=== PATIENT | male | born 1995 | race Caucasian/White ===

== ENCOUNTER 2017-07-20 11:11 | Emergency (ER) | payer SELFPAY ==
[2017-07-20] MEDS ORDERED: Albuterol/Ipratropium NEB.SOL* Albuterol 2.5 MG/Ipratropium 0.5 MG 3 ML INH ONE (11:31)
--- NOTE | 2017-07-20 12:29 | ED ---
HPI Cardiac - HPI Summary HPI Summary: Pt here w/ chest tightness, cough and URI sx x 2 days. Nasal congestion, rhinorrhea, ST, PND, dry cough w/ mucous production at night w/ sleeping. Denies fever, chills, N/V/D, ab pain, rash. He has h/o asthma but does not use albuterol inhaler as "this never helps". He smokes 1PPD and no desire to quit. Has not tried anything yet for his URI and cough. No known sick contacts. No PCP. - History of Current Complaint Chief Complaint: EDAsthma Stated Complaint: SOB Time Seen by Provider: 07/20/17 11:22 Hx Obtained From: Patient Pain Intensity: 0 - Allergy/Home Medications Allergies/Adverse Reactions: Allergies Allergy/AdvReac Type Severity Reaction Status Date / Time No Known Allergies Allergy Verified 07/20/17 11:16 PMH/Surg Hx/FS Hx/Imm Hx Previously Healthy: Yes Respiratory History: Reports: Hx Asthma Infectious Disease History: No Infectious Disease History: Denies: Traveled Outside the [place] in Last 30 Days - Social History Occupation: Unemployed Lives: With Family Alcohol Use: None Hx Substance Use: No Substance Use Type: Reports: None Hx Tobacco Use: Yes Smoking Status (MU): Current Every Day Smoker Amount Used/How Often: 1PPD - no desire to quit Review of Systems Constitutional: Negative Negative: Fever, Chills Eyes: Negative Negative: Drainage, Erythema Positive: Sore Throat, Nasal Discharge Cardiovascular: Negative Negative: Chest Pain Positive: Shortness Of Breath, Cough Gastrointestinal: Negative Positive: no symptoms reported Musculoskeletal: Negative Skin: Negative Neurological: Negative Psychological: Normal All Other Systems Reviewed And Are Negative: Yes Physical Exam Triage Information Reviewed: Yes Vital Signs On Initial Exam: Initial Vitals Temp Pulse Resp BP Pulse Ox 98.3 F 98 20 158/88 98 07/20/17 11:12 07/20/17 11:12 07/20/17 11:12 07/20/17 11:12 07/20/17 11:12 Vital Signs Reviewed: Yes Appearance: Positive: Well-Appearing, No Pain Distress, Obese Skin: Positive: Warm, Dry - no rash observed Head/Face: Positive: Normal Head/Face Inspection - Sinuses NTTP Eyes: Positive: Normal, EOMI, Conjunctiva Clear ENT: Positive: Hearing grossly normal, Pharyngeal erythema - cobblestoning, Nasal congestion, TMs normal. Negative: Nasal drainage, Trismus, Muffled voice Neck: Positive: Supple, Nontender, No Lymphadenopathy Respiratory/Lung Sounds: Positive: Clear to Auscultation, Breath Sounds Present , Rhonchi - clears w/ cough. Negative: Rales, Stridor, Wheezes Cardiovascular: Positive: Normal, RRR, S1, S2. Negative: Murmur, Rub Abdomen Description: Positive: Nontender, Soft Bowel Sounds: Positive: Present Musculoskeletal: Positive: Normal, Strength/ROM Intact Neurological: Positive: Normal, Sensory/Motor Intact, Alert, Oriented to Person Place, Time, CN Intact II-III Psychiatric: Positive: Normal Diagnostics - Vital Signs Vital Signs Temp Pulse Resp BP Pulse Ox 07/20/17 11:12 98.3 F 98 20 158/88 98 - Laboratory Diagnostic Studies Comment: CXR report reveals no acute findings. Lab Statement: Any lab studies that have been ordered have been reviewed, and results considered in the medical decision making process. Re-Evaluation - Re-Evaluation First Eval Change: Improved - chest tightness is somewhat imrpoved s/p duoneb - pulse ox > 95% and chest clear on auscultation; breathing easily at rest Disposition - Course Course Of Treatment: Pt appears to have bronchitis. Discussion about smoking effecting his pulm health along with other inhaled chemicals (ie. perfumes, candles, etc). Encouraged pulmonary toileting at home and avoiding irritants but especially f/u w/ PCP. He will return to ED if danger s/sx present. He was d /c'd w/ anbx and neb machine and he reports HFA is not typically helpful however neb was today and has been in the past. He also admits no desire to quit smoking - again, education provided. - Diagnoses Provider Diagnoses: Bronchitis, Smokes Discharge - Discharge Plan Condition: Stable Disposition: HOME Prescriptions: Albuterol/Ipratropium NEB.MINERVA* [Duoneb (Albuterol 2.5 MG/Ipratropium 0.5 MG)] 1 neb INH Q6H PRN #20 neb.minerva PRN Reason: Cough Azithromycin TAB* [Zithromax TAB (Z-THIAGO) 250 mg #6 tabs] 2 tab PO .TODAY, THEN 1 DAILY #1 thiago Respiratory Therapy Supplies [Nebulizer Kit/Tubing/Mout] 1 kit .SEE ORDER . DIRECTED #1 kit Patient Education Materials: Upper Respiratory Infection (ED), Acute Bronchitis (ED) Referrals: [facility] [place] [facility] [Outside] No Primary Care Phys,NOPCP [Primary Care Provider] - Additional Instructions: Rest, stay hydrated and avoid scents/chemicals/smoke/etc - these will trigger your asthma to be worse. You may also implement the following for relief of symptoms: Saline nasal wash (netti pot) & throat gargle 2 x day with 8 ounces of warm water + 1/4 teaspoon of salt Drink 60+ ounces of water daily Sleep 8+ hours per night Avoid Dairy and sugar Hot herbal/decaf tea with lemon & honey Chicken broth (preferably organic, free range chicken) Humidifier in house, but especially near bed at night Try a facial steam with or without eucalyptus essential oil or Vicks Vapor rub Cough drops Mucinex with plenty of water to loosen secretions Consider taking Vitamin D3 5,000iu and Vitamin C 1,000mg every day during illness Start probiotics in between and after completion of antibiotics (ie. Yogurt and/ or capsules of L. acidophilus, L. bifidus, L. casei, etc - make sure to get these from the refrigerated food section as they are live and active cultures) Complete antibiotics and use nebulizer breathing treatments as directed. If you breathing worsens, return to ED. Otherwise, follow-up with your PCP. If you do not have one, call the referral line to get established.
--- NOTE | 2017-07-20 12:49 | RAD ---
HISTORY: Cough, chest tightness COMPARISONS: None VIEWS: 4: Frontal dual-energy and lateral views of the chest. FINDINGS: CARDIOMEDIASTINAL SILHOUETTE: The cardiomediastinal silhouette is normal. CARMEN: The carmen are normal. PLEURA: The costophrenic angles are sharp. No pleural abnormalities are noted. LUNG PARENCHYMA: The lungs are clear. ABDOMEN: The upper abdomen is clear. There is no subphrenic gas. BONES AND SOFT TISSUES: No bone or soft tissue abnormalities are noted. OTHER: None. IMPRESSION: NO ACTIVE CARDIOPULMONARY DISEASE.
[2017-07-20 13:07] VITALS: BP 126/66
== END 2017-07-20 13:20 | disposition home or self-care (01) ==
LOC: ED 11:11
DX: J40 Bronchitis, not specified as acute or chronic (principal); R06.02 Shortness of breath; F17.210 Nicotine dependence, cigarettes, uncomplicated; R05 Cough; J06.9 Acute upper respiratory infection, unspecified; J34.89 Other specified disorders of nose and nasal sinuses; R09.81 Nasal congestion
CPT/HCPCS: 71020; 99282; A9270-GY

== ENCOUNTER 2017-08-07 14:55 | Emergency (ER) | payer SELFPAY ==
[2017-08-07 15:03] VITALS: BP 130/69
--- NOTE | 2017-08-07 15:41 | UC ---
Asthma HPI - HPI Summary HPI Summary: 21 y/o male presents to the urgent care s/o chest tightness and wheezing for the past 3 days. pt reports he doen't have his albuterol inhaler. He has Hx of asthma and it was controlled for the past 10 days until about 3 weeks ago when he had a URI and end up in the ER due to an episode of SOB and wheezing. He was Rx the nebulizer machine, but her insurance doesn't cover for it. Now symptoms have return. Pt denies fever, URI, SOB, chest pain, abdominal pain, N/V /D - History of Current Complaint Chief Complaint: UCRespiratory Stated Complaint: ASTHMA Time Seen by Provider: 08/07/17 15:39 Hx Obtained From: Patient Onset/Duration: Gradual Onset, Lasting Days - 3 days, Still Present Timing: Minutes Initial Severity: Mild Current Severity: Moderate Pain Intensity: 0 Pain Scale Used: 0-10 Numeric Location/Character: Wheezing Aggravating Factor(s): Smoke Alleviating Factor(s): Rest Associated Signs and Symptoms: Positive: Shortness of Breath - Risk Factors Status Asthmaticus Risk Factors: Negative - Allergy/Home Medications Allergies/Adverse Reactions: Allergies Allergy/AdvReac Type Severity Reaction Status Date / Time No Known Allergies Allergy Verified 08/07/17 15:03 PMH/Surg Hx/FS Hx/Imm Hx Previously Healthy: Yes Respiratory History: Asthma - Surgical History Surgical History: None - Family History Known Family History: Positive: None - apt denies FMHX - Social History Occupation: Employed Full-time Lives: With Family Alcohol Use: None Substance Use Type: None Smoking Status (MU): Heavy Every Day Tobacco Smoker Amount Used/How Often: 1PPD - no desire to quit Review of Systems Constitutional: Negative Skin: Negative Eyes: Negative ENT: Negative Respiratory: Shortness Of Breath, Other - wheezing Cardiovascular: Negative Gastrointestinal: Negative Genitourinary: Negative Motor: Negative Musculoskeletal: Negative Neurological: Negative Psychological: Negative Is Patient Immunocompromised?: No All Other Systems Reviewed And Are Negative: Yes Physical Exam Triage Information Reviewed: Yes Vital Signs: Initial Vital Signs Temp 97.8 F 08/07/17 14:59 Pulse 75 08/07/17 14:59 Resp 18 08/07/17 14:59 BP 130/69 08/07/17 14:59 Pulse Ox 100 12/04/17 14:59 - Additional Comments VITAL SIGNS: Reviewed. GENERAL: Patient is a well developed and nourished male with some w/o any apparent distress HEAD AND FACE: Normocephalic and atraumatic. EYES: PERRLA, EOMI x 2, No injected conjunctiva. EARS: Hearing grossly intact. Ear canals and tympanic membranes WNL MOUTH: Dry oral mucosa. NECK: Supple, trachea is midline, no adenopathy, no JVD, no carotid bruit. CHEST: Symmetric, No intercostal or abdominal retraction, LUNGS: Scattered bilateral wheezing in the posterior lungs.No crackles, rales CVS: RRR,, S1 and S2 present, no murmurs or gallops appreciated. ABDOMEN: Soft, non-tender. No signs of distention. Positive BS. No rebound, no guarding, and no masses palpated. EXTREMITIES: FROM in all major joints, no edema, no cyanosis or clubbing. NEURO: Alert and oriented x 3. No acute neurological deficits. Speech is normal and follows commands. SKIN: Dry and warm Asthma Course/Dx - Course Course Of Treatment: 21 y/o male presents to the urgent care s/o chest tightness and wheezing for the past 3 days. pt reports he doen't have his albuterol inhaler. He has Hx of asthma and it was controlled for the past 10 days until about 3 weeks ago when he had a URI and end up in the ER due to an episode of SOB and wheezing. He was Rx the nebulizer machine, but her insurance doesn't cover for it. Now symptoms have return. Pt denies fever, URI, SOB, chest pain, abdominal pain, N/V/D Hx obtained. Pt with astma exacerbation on examination probably due to URI. Pt given prednisone and Albuterol Treatment at the clinic. Patient tolerated well treatment and lungs improved, O2 sat 100% . Pt Rx same medications. The patient was recommended to increase fluid intake. Take medications as recommended. Patient recommended to return to the clinic or go to the nearest ER if symptoms do not improve or worsen. Patient understood and agreed with plan of care - Differential Dx/Diagnosis Differential Diagnosis/HQI/PQRI: Acute Asthma, Bronchitis, COPD Excerbation, Pneumonia, Reactive Airway Disease Provider Diagnoses: 1- Acute asthma exacerbation Discharge - Discharge Plan Condition: Stable Disposition: HOME Prescriptions: Albuterol HFA INHALER* [Ventolin HFA Inhaler*] 2 puff INH Q6H PRN #1 mdi PRN Reason: Wheezing predniSONE TAB* [Deltasone TAB*] 20 mg PO DAILY #8 tab Patient Education Materials: Asthma (ED) Referrals: [facility] [place] [facility] [Outside] - 3 Days Additional Instructions: 1-Please take full course of antibiotic to avoid resistance. 2-Take Prednisone PO as directed continue using the albuterol inhaler 3- If symptoms do not improve or worsen or your develop SOB with fever and severe wheezing please go immediately to the ER further evaluation and treatment. 4- F/u with your PCP in 2-3 days for further management on your Asthma
[2017-08-07] MEDS ORDERED: Albuterol 2.5 MG/3 ML NEB.SOL* (0.083%) INH ONE (15:49)
[2017-08-07] MEDS ORDERED: predniSONE TAB* 20 MG PO ONE (15:49)
== END 2017-08-07 16:28 | disposition home or self-care (01) ==
LOC: UCEAST 14:55
DX: J45.901 Unspecified asthma with (acute) exacerbation (principal); F17.210 Nicotine dependence, cigarettes, uncomplicated
CPT/HCPCS: 99212; G0463; J7512

== ENCOUNTER 2018-02-15 11:10 | Emergency (ER) | payer OTHER ==
[2018-02-15] MEDS ORDERED: Dexamethasone TAB* 4 MG PO ONE (11:34)
--- NOTE | 2018-02-15 11:48 | ED ---
Throat Pain/Nasal Congestion - HPI Summary HPI Summary: Pt. is a 22 y.o male who presents to the ER for a sore throat, cough and nasal congestion x 3 days. No past medical history. Pt. states he feels as though his throat is so swollen that he is having trouble breathing and swallowing. Denies associated fever, abd. pain, N/V/D. Symptoms are mild in severity. Swallowing makes symptoms worse. Nothing makes symptoms better. - History of Current Complaint Chief Complaint: EDThroatPain Time Seen by Provider: 02/15/18 11:23 Hx Obtained From: Patient - Allergies/Home Medications Allergies/Adverse Reactions: Allergies Allergy/AdvReac Type Severity Reaction Status Date / Time Adhesive Tape [Silk Tape] Allergy Unknown Verified 02/15/18 11:18 Reaction Details environmental Allergy Sneezing Uncoded 02/15/18 11:18 Home Medications: Home Medications NK [No Home Medications Reported] 02/15/18 [History Confirmed 02/15/18] PMH/Surg Hx/FS Hx/Imm Hx Previously Healthy: Yes Respiratory History: Reports: Hx Asthma Infectious Disease History: No Infectious Disease History: Denies: Traveled Outside the [place] in Last 30 Days - Family History Known Family History: Positive: None - apt denies FMHX - Social History Occupation: Employed Full-time Lives: With Family Alcohol Use: None Hx Substance Use: No Substance Use Type: Reports: None Hx Tobacco Use: Yes Smoking Status (MU): Heavy Every Day Tobacco Smoker Amount Used/How Often: 1PPD - no desire to quit Review of Systems Constitutional: Negative Negative: Fever, Chills Eyes: Negative Positive: Sore Throat, Nasal Discharge Positive: Shortness Of Breath, Cough Gastrointestinal: Negative Negative: Abdominal Pain, Vomiting, Diarrhea Neurological: Negative All Other Systems Reviewed And Are Negative: Yes Physical Exam Triage Information Reviewed: Yes Vital Signs On Initial Exam: Initial Vitals Temp Pulse Resp BP Pulse Ox 96.8 F 95 18 157/87 98 02/15/18 11:16 02/15/18 11:16 02/15/18 11:16 02/15/18 11:16 02/15/18 11:16 Vital Signs Reviewed: Yes Appearance: Positive: Well-Appearing - Pt. sitting in chair talking on his phone , in NAD. Skin: Positive: Warm, Dry Head/Face: Positive: Normal Head/Face Inspection Eyes: Positive: Normal ENT: Positive: TMs normal, Other - Oral pharynx with moderate bilateral tonsilar edema, small excudates bilaterally. Uvula is midline without edema or deviation. No muffled voice or pooling of secretions. Neck: Positive: Supple, No Lymphadenopathy. Negative: Nuchal Rigidity Respiratory/Lung Sounds: Positive: Clear to Auscultation, Breath Sounds Present Cardiovascular: Positive: Normal, RRR Neurological: Positive: Normal, CN Intact II-III Psychiatric: Positive: Affect/Mood Appropriate Diagnostics - Vital Signs Vital Signs Temp Pulse Resp BP Pulse Ox 02/15/18 11:16 96.8 F 95 18 157/87 98 - Laboratory Lab Statement: Any lab studies that have been ordered have been reviewed, and results considered in the medical decision making process. EENT Course/Dx - Course Course Of Treatment: Pt. presenting for the above symptoms. He is afebrile and well appearing. No signs of peritonsillar abscess on exam. Pt. was given a dose of decadron for edema. [place] and strep test are negative. Suspect viral etiology. Results discussed. To. fu with a PCP. Increase fluids. Tylenol or Motrin for pain as directed. Pt. understands and agrees with plan. - Differential Diagnoses Differential Diagnoses: Periodontic Abscess, Periodontic Disease, Peritonsillar Ulcer, Pharyngitis, Sinusitis, Tonsilitis - Diagnoses Provider Diagnoses: Viral pharyngitis Discharge - Sign-Out/Discharge Documenting (check all that apply): Discharge/Admit/Transfer - Discharge Plan Condition: Good Disposition: HOME Patient Education Materials: Pharyngitis (ED) Forms: *Work Release Referrals: [facility] [place] [facility] [Outside] No Primary Care Phys,NOPCP [Primary Care Provider] - Additional Instructions: Call the [facility] [place] to establish a PCP Increase fluids and rest Tylenol or Motrin for pain as directed Return to ER if symptoms change or worsen - Billing Disposition and Condition Condition: GOOD Disposition: Home
[2018-02-15 12:53] VITALS: BP 122/79
== END 2018-02-15 12:53 | disposition home or self-care (01) ==
LOC: ED 11:10
DX: J02.9 Acute pharyngitis, unspecified (principal); R09.81 Nasal congestion; R05 Cough; F17.210 Nicotine dependence, cigarettes, uncomplicated
CPT/HCPCS: 36415; 86308; 87651; 99282; J8540

== ENCOUNTER 2018-02-18 19:01 | Emergency (ER) | payer OTHER ==
[2018-02-18] MEDS ORDERED: Pseudoephedrine TAB* 30 MG PO ONE (19:49)
[2018-02-18] MEDS ORDERED: predniSONE TAB* 20 MG PO ONE (19:49)
--- NOTE | 2018-02-18 20:01 | ED ---
Suzanne Marquez Gabriel, scribed for Sebas Izquierdo MD on 02/18/18 at 1946 . Throat Pain/Nasal Congestion - HPI Summary HPI Summary: This patient is a 22 year old M presenting to [facility] with a chief complaint of sore throat that began 5 days ago. The patient rates the pain 8/10 in severity. Patient reports cough, hoarse voice, rhinorrhea, and subjective fever. Pt had a strep test 3 days ago that was negative but sx are getting worse. No hx DM. - History of Current Complaint Chief Complaint: EDGeneral Time Seen by Provider: 02/18/18 19:40 Hx Obtained From: Patient Onset/Duration: Lasting Days, Still Present Severity: Moderate Associated Signs And Symptoms: Positive: Hoarseness, Nasal Discharge Cough: Nonproductive - Allergies/Home Medications Allergies/Adverse Reactions: Allergies Allergy/AdvReac Type Severity Reaction Status Date / Time Adhesive Tape [Silk Tape] Allergy Unknown Verified 02/18/18 19:15 Reaction Details environmental Allergy Sneezing Uncoded 02/18/18 19:15 PMH/Surg Hx/FS Hx/Imm Hx Endocrine/Hematology History: Denies: Hx Anticoagulant Therapy, Hx Diabetes, Hx Sickle Cell Disease, Hx Thyroid Disease, Hx Anemia Cardiovascular History: Denies: Hx Angioplasty, Hx Cardiomegaly Respiratory History: Reports: Hx Asthma Neurological History: Denies: Hx Developmental Delay, Hx Migraine Psychiatric History: Denies: Hx Depression Infectious Disease History: No Infectious Disease History: Denies: Traveled Outside the [place] in Last 30 Days - Family History Known Family History: Positive: None - apt denies FMHX Negative: Cardiac Disease, Hypertension, Diabetes, Renal Disease, Seizure Disorder - Social History Occupation: Employed Full-time Alcohol Use: None Hx Substance Use: No Substance Use Type: Reports: None Hx Tobacco Use: Yes Smoking Status (MU): Heavy Every Day Tobacco Smoker Amount Used/How Often: 1PPD - no desire to quit Review of Systems Positive: Fever - subjective Positive: Sore Throat, Other - hoarse voice, rhinorrhea, Positive: Cough All Other Systems Reviewed And Are Negative: Yes Physical Exam - Summary Physical Exam Summary: Appearance: Well appearing, no pain distress Skin: warm, dry, reflects adequate perfusion Head/face: normal Eyes: EOMI, CHIO ENT: Clear nasal discharge, Enlarge tonsils with small amount of exudate, no abscess. Neck: supple, non-tender Respiratory: CTA, breath sounds present Cardiovascular: RRR, pulses symmetrical Abdomen: non-tender, soft Bowel Sounds: present Musculoskeletal: normal, strength/ROM intact Neuro: normal, sensory motor intact, A&Ox3 Triage Information Reviewed: Yes Vital Signs On Initial Exam: Initial Vitals Temp Pulse Resp BP Pulse Ox 97.8 F 86 20 128/91 100 02/18/18 19:11 02/18/18 19:11 02/18/18 19:11 02/18/18 19:11 02/18/18 19:11 Vital Signs Reviewed: Yes Diagnostics - Vital Signs Vital Signs Temp Pulse Resp BP Pulse Ox 02/18/18 19:11 97.8 F 86 20 128/91 100 - Laboratory Lab Statement: Any lab studies that have been ordered have been reviewed, and results considered in the medical decision making process. EENT Course/Dx - Course Course Of Treatment: Patient with postnasal drip, minor cough and sore throat for 4 days. No fever. Tested negative for strep. Culture pending. Treated here with steroid, decongestant. Continue same and add Claritin for possible seasonal allergy source given he works outside all day. - Differential Diagnoses Differential Diagnoses: URI/Bronchitis, Other - Allergic rhinitis, bacterial tonsillitis - Diagnoses Provider Diagnoses: URI (upper respiratory infection), Laryngitis Discharge - Sign-Out/Discharge Documenting (check all that apply): Discharge/Admit/Transfer - Discharge Plan Condition: Stable Disposition: HOME Prescriptions: Guaifenesin/Pseudoephedrne HCl [Mucinex D ER 600-60 mg Tablet] 1 each PO BID PRN #14 tab.er.12h PRN Reason: Congestion Loratadine [Claritin] 10 mg PO DAILY #20 capsule predniSONE TAB* [Deltasone TAB*] 50 mg PO DAILY #5 tab Patient Education Materials: Pharyngitis (ED) Referrals: [facility] [Outside] [facility] [place] [facility] [Outside] Additional Instructions: Care clinic and follow you up in the next 2-3 days if still ill. Cut back on smoking. Return with fever, difficulty swallowing, worse or other concerns. - Billing Disposition and Condition Condition: STABLE Disposition: Home The documentation as recorded by the Suzanne cochran Gabriel accurately reflects the service I personally performed and the decisions made by Timbo dubose Kirk, MD.
[2018-02-18 20:47] VITALS: BP 131/84
== END 2018-02-18 20:46 | disposition home or self-care (01) ==
LOC: ED 19:01
DX: J06.9 Acute upper respiratory infection, unspecified (principal); J04.0 Acute laryngitis; F17.200 Nicotine dependence, unspecified, uncomplicated
CPT/HCPCS: 99282; A9270-GY; J7512

== ENCOUNTER → 2018-03-09 19:00 | Emergency (ER) | payer OTHER ==
[~2018-03-09 19:00] MED LIST: Sulfamethox/Trimethoprim DS 800/160* TAB PO ONE
[2018-03-09 21:28] VITALS: BP 148/74
--- NOTE | 2018-03-09 22:06 | ED ---
Skin Complaint - HPI Summary HPI Summary: 22 year old male presents with abscess right shoulder for the past 3 days. He states the area has been draining. He states been draining pus. He denies any fevers. He states the redness around her has been spreading. Denies any history of MRSA. He is not diabetic. He has history of cyst but they have not abscessed before. He also has a cyst under his arm which is not causing any pain. He denies any fevers. He has not been placing heat on the area. - History of Current Complaint Chief Complaint: EDRashSkinAbscess Time Seen by Provider: 03/09/18 21:12 Stated Complaint: ABSCESS RT SHOULDER AND UNDER ARM Pain Intensity: 4 - Allergy/Home Medications Allergies/Adverse Reactions: Allergies Allergy/AdvReac Type Severity Reaction Status Date / Time Adhesive Tape [Silk Tape] Allergy Unknown Verified 02/18/18 19:15 Reaction Details environmental Allergy Sneezing Uncoded 02/18/18 19:15 Home Medications: Home Medications Cephalexin CAP* [Keflex CAP*] 500 mg PO TID 03/09/18 [History Confirmed 03/09/18 ] Ibuprofen TAB* [Motrin TAB* 800 MG] 800 mg PO Q6H PRN 03/09/18 [History Confirmed 03/09/18] PMH/Surg Hx/FS Hx/Imm Hx Endocrine/Hematology History: Denies: Hx Anticoagulant Therapy, Hx Diabetes, Hx Sickle Cell Disease, Hx Thyroid Disease, Hx Anemia Cardiovascular History: Denies: Hx Angioplasty, Hx Cardiomegaly Respiratory History: Reports: Hx Asthma Neurological History: Denies: Hx Developmental Delay, Hx Migraine Psychiatric History: Denies: Hx Depression Infectious Disease History: No Infectious Disease History: Denies: Traveled Outside the [place] in Last 30 Days - Family History Known Family History: Positive: None - apt denies FMHX Negative: Cardiac Disease, Hypertension, Diabetes, Renal Disease, Seizure Disorder - Social History Alcohol Use: None Hx Substance Use: No Substance Use Type: Reports: None Hx Tobacco Use: Yes Smoking Status (MU): Heavy Every Day Tobacco Smoker Amount Used/How Often: 1PPD - no desire to quit Review of Systems Negative: Fever Negative: Chest Pain Negative: Shortness Of Breath Positive: Rash - right arm All Other Systems Reviewed And Are Negative: Yes Physical Exam Triage Information Reviewed: Yes Vital Signs On Initial Exam: Initial Vitals Temp Pulse Resp BP Pulse Ox 98.7 F 102 18 141/82 97 03/09/18 19:14 03/09/18 19:14 03/09/18 19:14 03/09/18 19:14 03/09/18 19:14 Vital Signs Reviewed: Yes Appearance: Positive: Well-Appearing Skin: Positive: Warm, Dry, Other - 4cm by 3cm area of erythema with flautance right upper arm, 1/2cm area without flautance right axillary with no erythema Head/Face: Positive: Normal Head/Face Inspection Eyes: Positive: Normal, Conjunctiva Clear ENT: Positive: Pharynx normal Respiratory/Lung Sounds: Positive: Clear to Auscultation, Breath Sounds Present Cardiovascular: Positive: Normal, RRR Musculoskeletal: Positive: Strength/ROM Intact - right arm, Other - good pulses Neurological: Positive: Normal Psychiatric: Positive: Normal Procedures - Incision and Drainage right arm Site: right upper arm Anesthesia: Local Instrument(s): Scalpel Packing: Gauze Diagnostics - Vital Signs Vital Signs Temp Pulse Resp BP Pulse Ox 03/09/18 21:00 98.9 F 91 18 148/74 100 03/09/18 19:14 98.7 F 102 18 141/82 97 - Laboratory Lab Statement: Any lab studies that have been ordered have been reviewed, and results considered in the medical decision making process. Course/Dx - Course Course Of Treatment: 22 year old male presents with abscess right shoulder for the past 3 days. He states the area has been draining. He states been draining pus. He denies any fevers. He states the redness around her has been spreading. Denies any history of MRSA. He is not diabetic. He has history of cyst but they have not abscessed before. He also has a cyst under his arm which is not causing any pain. He denies any fevers. He has not been placing heat on the area. On exam has an abscess noted of the right arm. Also has a cyst in left armpit. I&D the area and got some drainage. place packing in the area and told to follow-up in 2 days to change packing. Will place on Bactrim. Patient understands agrees with plan. - Differential Diagnoses - Skin Complaint Differential Diagnoses: Abscess, Cellulitis, Contact Dermatitis - Diagnoses Provider Diagnoses: Abscess of right arm Discharge - Sign-Out/Discharge Documenting (check all that apply): Discharge/Admit/Transfer - Discharge Plan Condition: Good Disposition: HOME Prescriptions: Sulfamethox/Trimethoprim DS* [Bactrim DS 800/160 TAB*] 1 tab PO BID #19 tab Patient Education Materials: Abscess (ED) Referrals: No Primary Care Phys,NOPCP [Primary Care Provider] - Additional Instructions: Take antibiotic twice a day for 10 days, first dose given in ED Apply warm compresses to area Take ibuprofen or Tylenol for pain every 6 hours follow up with ED or urgent care in 2 days for wound check Return to ED if develop fever, area of redness spreads, or any new or worsening symptoms - Billing Disposition and Condition Condition: GOOD Disposition: Home
--- NOTE | 2018-03-10 07:47 | ED ---
Progress - Progress Note Progress Note: Patient's final wound culture reveals MRSA and staph aureus. Patient was diagnosed with abscess and treated with Bactrim. No change in treatment at this time. Course/Dx - Course Course Of Treatment: 22 year old male presents with abscess right shoulder for the past 3 days. He states the area has been draining. He states been draining pus. He denies any fevers. He states the redness around her has been spreading. Denies any history of MRSA. He is not diabetic. He has history of cyst but they have not abscessed before. He also has a cyst under his arm which is not causing any pain. He denies any fevers. He has not been placing heat on the area. On exam has an abscess noted of the right arm. Also has a cyst in left armpit. I&D the area and got some drainage. place packing in the area and told to follow-up in 2 days to change packing. Will place on Bactrim. Patient understands agrees with plan. - Diagnoses Provider Diagnoses: Abscess of right arm Discharge - Sign-Out/Discharge Documenting (check all that apply): Post-Discharge Follow Up - Discharge Plan Condition: Good Disposition: HOME Prescriptions: Sulfamethox/Trimethoprim DS* [Bactrim DS 800/160 TAB*] 1 tab PO BID #19 tab Patient Education Materials: Abscess (ED) Referrals: No Primary Care Phys,NOPCP [Primary Care Provider] - Additional Instructions: Take antibiotic twice a day for 10 days, first dose given in ED Apply warm compresses to area Take ibuprofen or Tylenol for pain every 6 hours follow up with ED or urgent care in 2 days for wound check Return to ED if develop fever, area of redness spreads, or any new or worsening symptoms - Billing Disposition and Condition Condition: GOOD Disposition: Home
== END | disposition home or self-care (01) ==
LOC: ED 19:00
DX: L02.413 Cutaneous abscess of right upper limb (principal); B95.62 Methicillin resistant Staphylococcus aureus infection as the cause of diseases classified elsewhere; J45.909 Unspecified asthma, uncomplicated; Z91.048 Other nonmedicinal substance allergy status; F17.210 Nicotine dependence, cigarettes, uncomplicated
CPT/HCPCS: 10060; 87070; 87077; 87186; 87205; 87640; 87641; 99282; A9270-GY

== ENCOUNTER 2018-03-11 15:08 | Emergency (ER) | payer OTHER ==
[2018-03-11 15:41] VITALS: BP 140/80
--- NOTE | 2018-03-11 15:50 | ED ---
Skin Complaint - HPI Summary HPI Summary: Pt. is a 22 y/o male who presents to the ER for packing removal of an abscess that was drained on right right arm 2 days ago. He was placed on Bactrim. Wound culture is growing MRSA susceptible to bactrim. Pt. states that redness and swelling seems to be decreasing. Wound draining purulent drainage. No associated symptoms of fever/chills, N/V. Symptoms are mild in severity. Touching wound makes symptoms worse. Rest makes symptoms better. - History of Current Complaint Chief Complaint: EDGeneral Time Seen by Provider: 03/11/18 15:22 Stated Complaint: NEEDS PACKING REMOVED F/WOUND Hx Obtained From: Patient Pain Intensity: 5 Pain Scale Used: 0-10 Numeric - Allergy/Home Medications Allergies/Adverse Reactions: Allergies Allergy/AdvReac Type Severity Reaction Status Date / Time Adhesive Tape [Silk Tape] Allergy Unknown Verified 03/11/18 15:13 Reaction Details environmental Allergy Sneezing Uncoded 03/11/18 15:13 PMH/Surg Hx/FS Hx/Imm Hx Previously Healthy: Yes Endocrine/Hematology History: Denies: Hx Anticoagulant Therapy, Hx Diabetes, Hx Sickle Cell Disease, Hx Thyroid Disease, Hx Anemia Cardiovascular History: Denies: Hx Angioplasty, Hx Cardiomegaly Respiratory History: Reports: Hx Asthma Neurological History: Denies: Hx Developmental Delay, Hx Migraine Psychiatric History: Denies: Hx Depression Infectious Disease History: No Infectious Disease History: Denies: Traveled Outside the [place] in Last 30 Days - Family History Known Family History: Positive: None - apt denies FMHX Negative: Cardiac Disease, Hypertension, Diabetes, Renal Disease, Seizure Disorder - Social History Occupation: Works From/At Home Lives: With Family Alcohol Use: None Hx Substance Use: No Substance Use Type: Reports: None Hx Tobacco Use: Yes Smoking Status (MU): Heavy Every Day Tobacco Smoker Amount Used/How Often: 1PPD - no desire to quit Review of Systems Constitutional: Negative Negative: Fever, Chills Negative: Vomiting, Nausea Positive: Other - Abscess to right upper arm All Other Systems Reviewed And Are Negative: Yes Physical Exam Triage Information Reviewed: Yes Vital Signs On Initial Exam: Initial Vitals Temp Pulse Resp BP Pulse Ox 97.0 F 88 14 143/80 99 03/11/18 15:10 03/11/18 15:10 03/11/18 15:10 03/11/18 15:10 03/11/18 15:10 Vital Signs Reviewed: Yes Appearance: Positive: Well-Appearing - Pt. sitting on bed in NAD. Mother present. Skin: Positive: Warm, Dry, Other - Noted to the right upper lateral arm there is a small wound opening with packing and a small amount of yellowish drainage. Small surround erythema and induration. Head/Face: Positive: Normal Head/Face Inspection Eyes: Positive: Normal Neck: Positive: Supple Neurological: Positive: Normal, CN Intact II-III Psychiatric: Positive: Affect/Mood Appropriate Procedures - Procedure Summary Procedure Summary: Small piece of packing removed from wound on right upper arm. Area irrigated with NS. Small amount of purulent matter expresses. Cavity is rather small. Small amount of 1/4 iodoform packing placed. Pt. tolerated well. Diagnostics - Vital Signs Vital Signs Temp Pulse Resp BP Pulse Ox 03/11/18 15:40 97 F 88 14 140/80 100 03/11/18 15:10 97.0 F 88 14 143/80 99 - Laboratory Lab Statement: Any lab studies that have been ordered have been reviewed, and results considered in the medical decision making process. Course/Dx - Course Course Of Treatment: Pt. presenting for wound check. Pt. states infection is improving. He is afebrile. Wound was repacked. To continue bactrim. Pt. states he recently found a new PCP but does not see them till the end of the month. Advised to apply warm compresses. Packing removal in 48 hours. To return to ER for increased redness, swelling, fever, N/V. Pt. understands and agrees with plan. - Differential Diagnoses - Skin Complaint Differential Diagnoses: Abscess, Cellulitis - Diagnoses Provider Diagnoses: Abscess Discharge - Sign-Out/Discharge Documenting (check all that apply): Discharge/Admit/Transfer - Discharge Plan Condition: Good Disposition: HOME Patient Education Materials: MRSA (Methicillin-Resistant Staphylococcus Aureus ) (ED), Abscess (ED) Referrals: No Primary Care Phys,NOPCP [Primary Care Provider] - Additional Instructions: Packing removal in 48 hours Continue antibiotic as directed Return to ER for wound check for increased redness, swelling, pain or fever Apply warm compresses Tylenol or Motrin for pain as directed - Billing Disposition and Condition Condition: GOOD Disposition: Home
== END 2018-03-11 15:40 | disposition home or self-care (01) ==
LOC: ED 15:08
DX: Z48.00 Encounter for change or removal of nonsurgical wound dressing (principal); L02.413 Cutaneous abscess of right upper limb; F17.200 Nicotine dependence, unspecified, uncomplicated
CPT/HCPCS: 99282

== ENCOUNTER 2018-03-13 17:45 | Emergency (ER) | payer OTHER ==
[2018-03-13] MEDS ORDERED: NS 0.9% 1000 ML* 1,000 ML IV ONE (18:04)
[2018-03-13] MEDS ORDERED: Ondansetron INJ* 2 MG/ML VIAL IV ONE (18:04)
[2018-03-13 18:31] LABS: ABS Basophils 0.1 10^3/ul (0-0.2); ABS Eosinophils 0.3 10^3/ul (0-0.6); ABS Lymphocytes 2.3 10^3/ul (1.0-4.8); ABS Monocytes 0.4 10^3/ul (0-0.8); ABS Neutrophils 5.3 10^3/ul (1.5-7.7); ABS Nucleated RBC 0 10^3/ul; Eosinophil % 3.4 % (0-6); Hematocrit 44 % (42-52); Hemoglobin 15.1 g/dl (14.0-18.0); Lymphocyte % 27.4 % (25-47); Mean Corpuscular HGB Conc 34 g/dl (31-36); Mean Corpuscular Hemoglobin 30 pg (27-31); Mean Corpuscular Volume 86 fL (80-94); Nucleated Red Blood Cells % 0.1; Platelet Count 247 10^3/ul (150-450); Red Blood Count 5.11 10^6/ul (4.00-5.40); Red Cell Distribution Width 13 % (10.5-15); White Blood Count 8.4 10^3/ul (3.5-10.8)
[2018-03-13 18:49] LABS: EGFR Non-African American 95.3 (>60)
[2018-03-13] MEDS ORDERED: Potassium Chlor TAB* 20 MEQ TAB.ER PO ONE (19:19)
--- NOTE | 2018-03-13 21:15 | ED ---
Complex/Multi-Sys Presentation - HPI Summary HPI Summary: 22 male presents ER with complaints of having an episode of feeling weak, sweaty and nauseous. States this occurred while in the bumps. Lasted about an hour or so. Denies any syncope or near syncope episodes. Has not taken any medicine. States prior to this episode he had drank multiple Mountain Dew sodas along with 4 shots of an energy drink. Denies drinking a lot of water today anything today. Patient was out in the excessive heat. Denies any past medical history. No chest pain, trouble breathing or abdominal pain. No other complaints or symptoms. Did have 2 episodes of vomiting. Never experienced this before. States he is feeling better. Denies any alcohol or drug use today other than chewing tobacco. No injury or trauma. Patient currently taking bactrim and keflex for a recent I&D abscess and tooth infection, both are significantly improving and are of no complaints. no fever/chills. - History Of Current Complaint Chief Complaint: EDWeakness Time Seen by Provider: 03/13/18 18:02 Hx Obtained From: Patient Onset/Duration: Sudden Onset, Lasting Hours, Resolved Timing: Constant, Hours Severity Currently: None Severity Initially: Mild Location: Negative Aggravating Factor(s): None Alleviating Factor(s): None Associated Signs And Symptoms: Positive: Weakness - Diaphoretic, Nausea, Vomiting - Allergies/Home Medications Allergies/Adverse Reactions: Allergies Allergy/AdvReac Type Severity Reaction Status Date / Time Adhesive Tape [Silk Tape] Allergy Unknown Verified 03/13/18 17:53 Reaction Details environmental Allergy Sneezing Uncoded 03/13/18 17:53 PMH/Surg Hx/FS Hx/Imm Hx Endocrine/Hematology History: Denies: Hx Anticoagulant Therapy, Hx Diabetes, Hx Sickle Cell Disease, Hx Thyroid Disease, Hx Anemia Cardiovascular History: Denies: Hx Angioplasty, Hx Cardiomegaly Respiratory History: Reports: Hx Asthma Neurological History: Denies: Hx Developmental Delay, Hx Migraine Psychiatric History: Denies: Hx Depression - Surgical History Surgery Procedure, Year, and Place: None - Immunization History Immunizations Up to Date: Yes Infectious Disease History: No Infectious Disease History: Denies: Traveled Outside the [place] in Last 30 Days - Family History Known Family History: Positive: None - apt denies FMHX Negative: Cardiac Disease, Hypertension, Diabetes, Renal Disease, Seizure Disorder - Social History Alcohol Use: None Hx Substance Use: No Substance Use Type: Reports: None Hx Tobacco Use: Yes Smoking Status (MU): Heavy Every Day Tobacco Smoker Amount Used/How Often: 1PPD - no desire to quit Review of Systems Constitutional: Negative Cardiovascular: Negative Respiratory: Negative Positive: Vomiting - 2 episodes, Nausea Musculoskeletal: Negative Skin: Negative Positive: Weakness - diaphoretic All Other Systems Reviewed And Are Negative: Yes Physical Exam Triage Information Reviewed: Yes Vital Signs On Initial Exam: Initial Vitals Temp Pulse Resp BP Pulse Ox 96 F 88 20 138/75 100 03/13/18 17:51 03/13/18 17:51 03/13/18 17:51 03/13/18 17:51 03/13/18 17:51 Vital Signs Reviewed: Yes Appearance: Positive: Well-Appearing, No Pain Distress, Well-Nourished Skin: Positive: Warm, Skin Color Reflects Adequate Perfusion, Dry. Negative: Cold, Numb, Cyanosis @, Diaphoretic, Pale, Erythema @ Head/Face: Positive: Normal Head/Face Inspection. Negative: TMJ Tenderness, Scalp Eyes: Positive: Normal, EOMI, CHIO, Conjunctiva Clear ENT: Positive: Normal ENT inspection, Hearing grossly normal, Pharynx normal, TMs normal, Uvula midline. Negative: Nasal congestion, Nasal drainage, Tonsillar swelling, Tonsillar exudate Neck: Positive: Supple, Nontender, No Lymphadenopathy Respiratory/Lung Sounds: Positive: Clear to Auscultation, Breath Sounds Present. Negative: Decreased Breath Sounds, Rales, Rhonchi, Wheezes Cardiovascular: Positive: Normal, RRR, Pulses are Symmetrical in both Upper and Lower Extremities. Negative: Murmur, Rub Abdomen Description: Positive: Nontender, No Organomegaly, Soft Bowel Sounds: Positive: Present Musculoskeletal: Positive: Normal, Strength/ROM Intact Neurological: Positive: Normal, Sensory/Motor Intact, Alert, Oriented to Person Place, Time, CN Intact II-III, NV Bundle Intact Distally, Normal Gait - Ryan Coma Scale Best Eye Response: 4 - Spontaneous Best Motor Response: 6 - Obeys Commands Best Verbal Response: 5 - Oriented Coma Scale Total: 15 Diagnostics - Vital Signs Vital Signs Temp Pulse Resp BP Pulse Ox 03/13/18 17:51 96 F 88 20 138/75 100 - Laboratory Lab Results: Lab Results 03/13/18 03/13/18 03/13/18 Range/Units 18:18 18:18 18:18 WBC 8.4 (3.5-10.8) 10^3/ul RBC 5.11 (4.00-5.40) 10^6/ul Hgb 15.1 (14.0-18.0) g/dl Hct 44 (42-52) % MCV 86 (80-94) fL MCH 30 (27-31) pg MCHC 34 (31-36) g/dl RDW 13 (10.5-15) % Plt Count 247 (150-450) 10^3/ul MPV 8.0 (7.4-10.4) um3 Neut % (Auto) 63.0 (38-83) % Lymph % (Auto) 27.4 (25-47) % Phillips % (Auto) 4.9 (0-7) % Eos % (Auto) 3.4 (0-6) % Baso % (Auto) 1.3 (0-2) % Absolute Neuts (auto) 5.3 (1.5-7.7) 10^3/ul Absolute Lymphs (auto) 2.3 (1.0-4.8) 10^3/ul Absolute Monos (auto) 0.4 (0-0.8) 10^3/ul Absolute Eos (auto) 0.3 (0-0.6) 10^3/ul Absolute Basos (auto) 0.1 (0-0.2) 10^3/ul Absolute Nucleated RBC 0 10^3/ul Nucleated RBC % 0.1 Sodium 140 (135-145) mmol/L Potassium 3.1 L (3.5-5.0) mmol/L Chloride 104 (101-111) mmol/L Carbon Dioxide 21 L (22-32) mmol/L Anion Gap 15 H (2-11) mmol/L BUN 8 (6-24) mg/dL Creatinine 1.00 (0.67-1.17) mg/dL Est GFR ( Amer) 115.3 (>60) Est GFR (Non-Af Amer) 95.3 (>60) BUN/Creatinine Ratio 8.0 (8-20) Glucose 130 H (70-100) mg/dL Lactic Acid 3.7 H* (0.5-2.0) mmol/L Calcium 9.0 (8.6-10.3) mg/dL Magnesium 1.6 L (1.9-2.7) mg/dL Total Bilirubin 0.30 (0.2-1.0) mg/dL AST 21 (13-39) U/L ALT 36 (7-52) U/L Alkaline Phosphatase 51 (34-104) U/L Total Protein 7.0 (6.4-8.9) g/dL Albumin 4.2 (3.2-5.2) g/dL Globulin 2.8 (2-4) g/dL Albumin/Globulin Ratio 1.5 (1-3) /06/21 Range/Units 20:09 WBC (3.5-10.8) 10^3/ul RBC (4.00-5.40) 10^6/ul Hgb (14.0-18.0) g/dl Hct (42-52) % MCV (80-94) fL MCH (27-31) pg MCHC (31-36) g/dl RDW (10.5-15) % Plt Count (150-450) 10^3/ul MPV (7.4-10.4) um3 Neut % (Auto) (38-83) % Lymph % (Auto) (25-47) % Phillips % (Auto) (0-7) % Eos % (Auto) (0-6) % Baso % (Auto) (0-2) % Absolute Neuts (auto) (1.5-7.7) 10^3/ul Absolute Lymphs (auto) (1.0-4.8) 10^3/ul Absolute Monos (auto) (0-0.8) 10^3/ul Absolute Eos (auto) (0-0.6) 10^3/ul Absolute Basos (auto) (0-0.2) 10^3/ul Absolute Nucleated RBC 10^3/ul Nucleated RBC % Sodium (135-145) mmol/L Potassium (3.5-5.0) mmol/L Chloride (101-111) mmol/L Carbon Dioxide (22-32) mmol/L Anion Gap (2-11) mmol/L BUN (6-24) mg/dL Creatinine (0.67-1.17) mg/dL Est GFR ( Amer) (>60) Est GFR (Non-Af Amer) (>60) BUN/Creatinine Ratio (8-20) Glucose (70-100) mg/dL Lactic Acid 2.2 H* (0.5-2.0) mmol/L Calcium (8.6-10.3) mg/dL Magnesium (1.9-2.7) mg/dL Total Bilirubin (0.2-1.0) mg/dL AST (13-39) U/L ALT (7-52) U/L Alkaline Phosphatase (34-104) U/L Total Protein (6.4-8.9) g/dL Albumin (3.2-5.2) g/dL Globulin (2-4) g/dL Albumin/Globulin Ratio (1-3) Result Diagrams: 03/13/18 18:18 03/13/18 18:18 Lab Statement: Any lab studies that have been ordered have been reviewed, and results considered in the medical decision making process. Re-Evaluation - Re-Evaluation First Eval Re-Evaluation Time: 18:30 Change: Improved - feeling much better, no longer symptomatic Second Eval Re-Evaluation Time: 19:40 Change: Improved - still without complaints, updated on findings, ready for discharge, eating, drinking, laughing and chewing tobacco Complex Multi-Symp Course/Dx Course Of Treatment: Appears patient had much caffeine/energy drinks and was slightly dehydrated without bleeding and in excessive heat. Patient currently being treated for recent abscess I&D and tooth infection with Keflex and Bactrim. Has not had any complaints. States both are improving significantly. States he is no longer symptomatic and is feeling much better. States symptoms only lasted a few minutes. Labs appeared normal other than elevated lactic acid however on repeat was back to close to normal range. Low potassium and magnesium. Potassium was given on ED. Along with normal saline. Normal vitals throughout visit. Patient was asymptomatic throughout visit. Normal physical exam. Blood cultures obtained and pending although no concern for any infection or sepsis at this time. Aware worsening signs and symptoms watch out for. Follow-up with primary care doctor tomorrow to ensure improvement. All questions answered. - Diagnoses Differential Diagnoses/HQI/PQRI: Other - weakness, dehydration, caffeine overdose Provider Diagnoses: Weakness, Dehydration Discharge - Sign-Out/Discharge Documenting (check all that apply): Patient Departure - Discharge Plan Condition: Stable Disposition: HOME Patient Education Materials: Dehydration (ED), Weakness (ED) Referrals: [facility] [Outside] Additional Instructions: Increase fluid intake and drink plenty of water. Take breaks while outside in the excessive heat. Avoid energy drinks and soda as we discussed. Continue taking previously prescribed medications as directed. Follow-up with primary care provider in 2-3 days for recheck. If symptoms return, new symptoms develop, or symptoms worsen please return to the ER as we discussed - Billing Disposition and Condition Condition: STABLE Disposition: Home
[2018-03-13 21:47] VITALS: BP 133/84
== END 2018-03-13 21:46 | disposition home or self-care (01) ==
LOC: ED 17:45
DX: E86.0 Dehydration (principal); E87.6 Hypokalemia; E83.42 Hypomagnesemia; R53.1 Weakness; F17.220 Nicotine dependence, chewing tobacco, uncomplicated
CPT/HCPCS: 36415; 80053; 83605; 83735; 85025; 87040; 96361; 96374; 99282; A9270-GY; J2405

== ENCOUNTER 2018-04-22 21:48 | Emergency (ER) | payer OTHER ==
[2018-04-22] MEDS ORDERED: Clindamycin 900 MG IVPREMIX(* 900 MG/50 ML SDV IV ONE (22:18)
[2018-04-22] MEDS ORDERED: Ketorolac INJ* 30 MG/ML 1 ML VIAL IV PUSH ONE (22:18)
[2018-04-22] MEDS ORDERED: Morphine INJ* 2 MG/ML 1 ML SYRINGE (TWO MG - NEW SYRINGE VERSION) IV ONE (22:18)
[2018-04-22] MEDS ORDERED: Tetan/Diph/Pertus SYR(Tdap)* 0.5 ML SYR(BOOSTRIX) use SYR IM ONE (22:19)
--- NOTE | 2018-04-22 22:26 | ED ---
Skin Complaint - HPI Summary HPI Summary: This is Alireza cochran documenting for attending physician Sebas Izquierdo MD. This patient is a 22 year old M presenting to [facility] c/o right knee pain. Pt hit his knee causing a small abrasion 5 days ago. Since then it has become red, painful, and swollen. The patient rates the pain 9/10 in severity. Patient denies CP, SOB, fevers, and ABD pain. 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 Pt is unsure of his last tetanus shot. hx of MRSA Pt has an initial appointment with his PCP in 5 days. - History of Current Complaint Chief Complaint: EDExtremityLower Time Seen by Provider: 04/22/18 22:11 Stated Complaint: POSSIBLE INFECTION ON RT KNEE Hx Obtained From: Patient Onset/Duration: Started Days Ago - 5, Still Present Skin Exposure Onset/Duration: Days Ago, Worse Since: Timing: Constant Onset Severity: Mild Current Severity: Moderate Pain Intensity: 9 Pain Scale Used: 0-10 Numeric Skin Location: Leg - r Character: Pain, Redness Associated Signs & Symptoms: Negative - fever - Allergy/Home Medications Allergies/Adverse Reactions: Allergies Allergy/AdvReac Type Severity Reaction Status Date / Time Adhesive Tape [Silk Tape] Allergy Unknown Verified 04/22/18 21:52 Reaction Details environmental Allergy Sneezing Uncoded 04/22/18 21:52 PMH/Surg Hx/FS Hx/Imm Hx Endocrine/Hematology History: Denies: Hx Anticoagulant Therapy, Hx Diabetes, Hx Sickle Cell Disease, Hx Thyroid Disease, Hx Anemia Cardiovascular History: Denies: Hx Angioplasty, Hx Cardiomegaly Respiratory History: Reports: Hx Asthma Neurological History: Denies: Hx Developmental Delay, Hx Migraine Psychiatric History: Denies: Hx Depression - Surgical History Surgery Procedure, Year, and Place: None Infectious Disease History: No Infectious Disease History: Denies: Traveled Outside the [place] in Last 30 Days - Family History Known Family History: Positive: Diabetes Negative: Cardiac Disease, Hypertension, Renal Disease, Seizure Disorder - Social History Occupation: Employed Full-time Alcohol Use: None Hx Substance Use: No Substance Use Type: Reports: None Hx Tobacco Use: Yes Smoking Status (MU): Heavy Every Day Tobacco Smoker Amount Used/How Often: 1PPD - no desire to quit Review of Systems Negative: Fever Negative: Chest Pain Negative: Shortness Of Breath Negative: Abdominal Pain Positive: Other - redness, pain, swelling All Other Systems Reviewed And Are Negative: Yes Physical Exam - Summary Physical Exam Summary: Appearance: Well appearing, no pain distress Skin: there is a 3x5 cm area of redness and induration that extends medially in the middle of this there a small abrasion/break in the skin. Head/face: normal Eyes: EOMI, CHIO ENT: normal Neck: supple, non-tender Respiratory: CTA, breath sounds present Cardiovascular: RRR, pulses symmetrical Abdomen: non-tender, soft Bowel Sounds: present Musculoskeletal: normal, strength/ROM intact Neuro: normal, sensory motor intact, A&Ox3 Bedside US shows soft tissue edema and free fluid Triage Information Reviewed: Yes Vital Signs On Initial Exam: Initial Vitals Temp Pulse Resp BP Pulse Ox 98.4 F 94 20 054/65 100 04/22/18 21:49 04/22/18 21:49 04/22/18 21:49 04/22/18 21:49 04/22/18 21:49 Vital Signs Reviewed: Yes Procedures - Procedure Summary Procedure Summary: Bedside US of the right knee shows soft tissue edema and free fluid - Incision and Drainage Right Knee Site: right knee Anesthesia: Lidocaine - 2cc of 2% with epi , Other - 2cc of 0.5% bupivacaine Instrument(s): Scalpel - Small amount of pus and effected subcutaneous adipose was drained Packing: Gauze - after iodine was applied and the wound was irrigated with about 100 ccs of saline Diagnostics - Vital Signs Vital Signs Temp Pulse Resp BP Pulse Ox 04/22/18 21:49 98.4 F 94 20 054/65 100 - Laboratory Result Diagrams: 04/22/18 22:24 04/22/18 22:24 Lab Statement: Any lab studies that have been ordered have been reviewed, and results considered in the medical decision making process. Re-Evaluation - Re-Evaluation First Eval Re-Evaluation Time: 23:39 Change: Improved Comment: Pt is feeling better and would like to go home. Course/Dx - Course Course Of Treatment: Patient with a history of MRSA presents with superficial injury to his right knee with associated cellulitis/abscess. Small amount of free fluid seen on bedside ultrasound. Incision and drainage performed with small amount of purulent material out. Packing placed. IV clindamycin given. MRSA return positive after the patient was discharged. He had not wish to be admitted to the hospital. His pain was improved here and he will be treated with outpatient clindamycin, pain control. He'll follow-up in the [facility] in 2 days' time for wound recheck and packing removal. He is instructed not to go to work during this time and to maintain clean skin. 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 - Differential Diagnoses - Skin Complaint Differential Diagnoses: Other - Abscess, cellulitis, bursitis - Diagnoses Provider Diagnoses: Abscess of right knee, Cellulitis Discharge - Sign-Out/Discharge Documenting (check all that apply): Patient Departure - Discharge Plan Condition: Improved Disposition: HOME Prescriptions: Clindamycin Cap(NF) [Clindamycin Cap 300 mg Cap(NF)] 300 mg PO TID #21 cap HYDROcodone/ACETAMIN 5-325 MG* [[place] 5-325 TAB*] 1 tab PO Q8H PRN #10 tab MDD 3 PRN Reason: more severe pain Patient Education Materials: Abscess (ED) Forms: *Work Release Referrals: [facility] [Outside] - 2 Days Additional Instructions: Call the [facility] to schedule follow-up appointment and wound recheck for 2 days' time. Return with fever, increasing redness out side the boundaries that were marked and your leg, worse, new symptoms or other concerns. Keep area clean and dry. Ibuprofen for baseline pain. - Billing Disposition and Condition Condition: IMPROVED Disposition: Home Attestation Statement Scribe Attestation: This is Alireza cochran documenting for attending physician Sebas Izquierdo MD. User Type: Provider with Scribe Provider Attestation: The documentation recorded by the suzieibe accurately reflects the service I personally performed and the decisions made by me.
[2018-04-22 22:38] LABS: ABS Basophils 0.1 10^3/ul (0-0.2); ABS Eosinophils 0.2 10^3/ul (0-0.6); ABS Lymphocytes 2.4 10^3/ul (1.0-4.8); ABS Monocytes 0.7 10^3/ul (0-0.8); ABS Neutrophils 7.4 10^3/ul (1.5-7.7); ABS Nucleated RBC 0 10^3/ul; Eosinophil % 1.9 % (0-6); Hematocrit 41 % (42-52); Hemoglobin 14.2 g/dl (14.0-18.0); Lymphocyte % 22.3 % (25-47); Mean Corpuscular HGB Conc 35 g/dl (31-36); Mean Corpuscular Hemoglobin 30 pg (27-31); Mean Corpuscular Volume 85 fL (80-94); Mean Platelet Volume 8.5 um3 (7.4-10.4); Nucleated Red Blood Cells % 0; Platelet Count 226 10^3/ul (150-450); Red Blood Count 4.82 10^6/ul (4.00-5.40); Red Cell Distribution Width 13 % (10.5-15); White Blood Count 10.8 10^3/ul (3.5-10.8)
[2018-04-22 22:58] LABS: EGFR Non-African American 114.9 (>60)
[2018-04-23 00:05] VITALS: BP 132/76
--- NOTE | 2018-04-26 08:11 | PN ---
Progress Note - Progress Note Date of Service: 04/26/18 Note: Patient place on Clindamycin which final culture shows is sensitive to. No further action required.
== END 2018-04-23 00:04 | disposition home or self-care (01) ==
LOC: ED 21:48
DX: L02.415 Cutaneous abscess of right lower limb (principal); L03.115 Cellulitis of right lower limb; F17.210 Nicotine dependence, cigarettes, uncomplicated
CPT/HCPCS: 36415; 80048; 85025; 87040; 87070; 87077; 87186; 87205; 87640; 87641; 90471; 90715; 96374; 96375; 99282; J1885; J2270